=== PATIENT | female | born 1970 | race Caucasian/White ===

== ENCOUNTER 2022-12-23 17:14 | Emergency (ER) | payer MEDICARE, SELFPAY ==
--- NOTE | ~2022-12-23 | CT_ITS ---
EXAMINATION: CT brain wo con DATE: 12/23/2022 18:02 INDICATION: Right-sided numbness X 3 WEEKS . TECHNIQUE: Computed tomography (CT) of the head was performed with intravenous contrast. The mA was a djusted according to patient size. Iterative reconstruction technique was employed. The dose-length p roduct was 605.33 mGy-cm. COMPARISON: None. FINDINGS: No acute intracranial hemorrhage or extra-axial fluid collection. No hydrocephalus, mass, or herniation. No acute ischemic infarct. Unremarkable dural venous sinus attenuation. No acute osseous abnormality. The aerated spaces are clear. IMPRESSION: No acute intracranial process. Reviewed, dictated and finalized at location K.
[2022-12-23 17:14] VITALS: BP 157/88; PULSE 96; RESP 20; TEMP 36.6; O2SAT 97
--- NOTE | 2022-12-23 17:16 | ED.NEUROSD ---
HPI - Neuro Symptoms/Deficit General Chief Complaint: Unspecified Stated Complaint: R hand numbness Time Seen by Provider: 12/23/22 17:15 Source: patient Mode of arrival: ambulatory Limitations: no limitations History of Present Illness HPI Narrative: 52-year-old female, smoker with a history of bipolar, diabetes mellitus, hypothyroidism, peripheral neuropathy, status post uterine ablation presents to the ER with a one-week history of -- right hand swelling without any history of trauma. Her swelling increases with activity. 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 -- Numbness of right half of her body off and on for the past 7 days. -- felt that she had an episode where she was staring blankly into space for an unknown period of time. Subsequently the patient came around without any neuro deficit. -- fatigue for the past 7 days Onset (ago): day(s) ( Symptoms started 7 days ago.) Timing confirmed by: spouse Location: right arm and other ( Intermittent right weakness/ numbness/ swelling. intermittent right-sided numbness) Severity: mild Quality: numb and tingling Relieving factors: none Exacerbating factors: none Associated symptoms: denies other symptoms Treatments Prior to Arrival: none Related Data Home Medications Medication Instructions Recorded Confirmed albuterol sulfate 90 mcg/actuation 2 inh inhalation DAILY 12/23/22 12/23/22 breath activated powder inhaler (ProAir RespiClick) amlodipine 5 mg tablet 5 mg PO DAILY 12/23/22 12/23/22 dulaglutide 1.5 mg/0.5 mL 1.5 mg subcut WEEKLY 12/23/22 12/23/22 subcutaneous pen injector (Trulicity) duloxetine 20 mg capsule,delayed 20 mg PO DAILY 12/23/22 12/23/22 release fluticasone furoate 50 See Rx Instructions .Route .COMPLEX 12/23/22 12/23/22 mcg/actuation blister powder for inhalation (Arnuity Ellipta) gabapentin 300 mg capsule 300 mg PO BID 12/23/22 12/23/22 hydroxyzine HCl 25 mg tablet 25 mg PO TID 12/23/22 12/23/22 levothyroxine 150 mcg tablet 150 mcg PO DAILY 12/23/22 12/23/22 losartan 100 mg tablet 100 mg PO DAILY 12/23/22 12/23/22 metformin 500 mg tablet 1,000 mg PO BID 12/23/22 12/23/22 pantoprazole 40 mg tablet,delayed 40 mg PO DAILY 12/23/22 12/23/22 release pravastatin 40 mg tablet 40 mg PO DAILY 12/23/22 12/23/22 prazosin 2 mg capsule 2 mg PO DAILY 12/23/22 12/23/22 Allergies Allergy/AdvReac Type Severity Reaction Status Date / Time No Known Allergies Allergy Verified 12/23/22 17:17 Review of Systems Review of Systems: All systems reviewed & are unremarkable except as noted in HPI and below Constitutional: Constitutional: Reports as per HPI and Reports no additional constitutional complaints Eyes: Eyes: Reports as per HPI and Reports no additional eye complaints ENT: Reports system reviewed and no additional complaints, except as documented and Reports as per HPI Cardiovascular: Cardiovascular: Reports as per HPI and Reports no additional cardiovascular complaints Respiratory: Respiratory: Reports as per HPI and Reports no additional respiratory complaints Gastrointestinal: Gastrointestinal: Reports as per HPI and Reports no additional gastrointestinal complaints Genitourinary: Genitourinary: Reports no additional female genitourinary complaints and Reports as per HPI Musculoskeletal: Musculoskeletal: Reports no additional musculoskeletal complaints and Reports as per HPI Integumentary/Breasts: Skin/Breast: Reports system reviewed and no additional complaints, except as docu and Reports as per HPI Neurologic: Reports system reviewed and no additional complaints, except as documented and Reports as per HPI Comments: chronic lower extremity numbness intermittent right upper extremity numbness/swelling /pain intermittent right-sided numbness Psychiatric: Psychiatric: Reports no additional psychiatric complaints and Reports as per HPI Endocrine: Endocrine: Reports no additional endocrine complaints, Reports excessiv
--- NOTE | 2022-12-23 17:36 | ECG_ITS ---
Measurements Intervals [place] Rate: 112 P: 45 FL: 138 QRS: 53 QRSD: 103 T: 184 QT: 329 QTc: 451 Interpretive Statements SINUS TACHYCARDIA BASELINE ARTIFACT NONSPECIFIC ST-T CHANGES NO PREVIOUS ECG AVAILABLE FOR COMPARISON Electronically Signed On 12-24-2022 18:22:05 CDT by Deepika Pizano M.D.
[2022-12-23 17:55] LABS: Basophils Absolute Auto 0.05 K/mm3 (0.00-0.10); Basophils Percent Auto 0.6 % (0.0-1.0); Eosinophils Absolute Auto 0.55 K/mm3 (0.02-0.50); Eosinophils Percent Auto 6.5 % (1.0-6.0); Hemoglobin 14.7 g/dL (12.0-15.0); Immature Granulocyte Absolute 0.06 K/mm3 (0.00-0.00); Immature Granulocyte Percent A 0.7 % (0.0-0.0); Lymphocytes Absolute Auto 2.89 K/mm3 (1.10-4.50); Mean Corpuscular HGB Conc 34.2 g/dL (32.0-36.0); Mean Corpuscular Hemoglobin 30.2 pg (27.0-31.0); Mean Corpuscular Volume 88.3 fL (78.0-102.0); Mean Platelet Volume 9.1 fl (9.2-11.8); Monocytes Absolute Auto 0.55 K/mm3 (0.10-0.90); Monocytes Percent Auto 6.5 % (2.0-11.0); Neutrophils Absolute Auto 4.4 K/mm3 (1.7-7.2); Neutrophils Percent Auto 51.7 % (50.0-70.0); Platelet Count Result 289 K/mm3 (150-420); Red Blood Count 4.87 M/mm3 (4.20-5.40); Red Cell Distribution Width 13.4 % (11.6-14.4); White Blood Count 8.5 K/mm3 (4.8-10.8)
[2022-12-23 18:15] LABS: INR 0.9; Prothrombin Time 10.4 Seconds (9.50-12.10)
[2022-12-23 18:22] LABS: Alanine Aminotransferase 28 U/L (14-59); Albumin Level 3.5 g/dL (3.4-5.0); Alkaline Phosphatase 79 U/L (46-116); Anion Gap 11 mmol/L (8-16); Aspartate Amino Transferase 14 U/L (15-37); Bilirubin,Total 0.2 mg/dL (0.00-1.00); Blood Urea Nitrogen 9 mg/dL (7-18); Calcium 9.5 mg/dL (8.5-10.1); Carbon Dioxide 28 mmol/L (21-32); Chloride 103 mmol/L (98-108); Estimated CRCL calculation 97 ml/min; Estimated Glomerular Filt Rate > 60; Glucose 237 mg/dL (70-99); Lipase 38 U/L (16-77); Osmolality Calculated 300 mOsm/kg (285-295); Potassium 3.5 mmol/L (3.5-5.1); Sodium 142 mmol/L (136-145); Thyroid Stimulating Hormone 15.08 uIU/mL (0.36-3.74); Total Protein 7.4 g/dL (6.4-8.2)
--- NOTE | 2022-12-23 18:28 | PC.NURSE ---
PT IS AWAITING RESULTS AT THIS TIME. NAD NOTED. PT IS SITTING UP ON STRETCHER WITHOUT DISTRESS. SIG OTHER AT BEDSIDE. WILL CONTINUE TO MONITOR.
--- NOTE | 2022-12-23 18:51 | PC.NURSE ---
ERP AT BEDSIDE. TO CONTINUE TO MONITOR.
[2022-12-23 19:00] VITALS: BP 128/76; PULSE 98; RESP 18; O2SAT 97
== END 2022-12-23 19:00 | disposition home or self-care (01) ==
PROVIDERS: Emergency Provider Internal Medicine Critical Care Medicine; PCP Family Medicine
DX: E11.42 Type 2 diabetes mellitus with diabetic polyneuropathy (principal); G62.9 Polyneuropathy, unspecified; R94.31 Abnormal electrocardiogram [ECG] [EKG]; M79.89 Other specified soft tissue disorders; R53.1 Weakness; E03.9 Hypothyroidism, unspecified; Z79.84 Long term (current) use of oral hypoglycemic drugs
CPT/HCPCS: 36415; 70450; 80053; 83690; 84443; 84484; 85025; 85610; 93005; 99284

== ENCOUNTER 2024-02-19 20:05 | Emergency (ER) | payer MEDICARE, SELFPAY ==
--- NOTE | ~2024-02-19 | CT_ITS ---
EXAMINATION: CT abdomen pelvis w con DATE: 02/19/2024 21:28 INDICATION: 3 months of epigastric pain. TECHNIQUE: Computed tomography (CT) of the abdomen and pelvis was performed with 100 mL Omnipaque-350 intravenous contrast. Automated exposure control and iterative reconstruction technique were employe d. The dose-length product was 1311.25 mGy-cm. COMPARISON: None FINDINGS: Lung bases are clear. Heart size is normal. No pericardial or pleural effusion. Liver, gallbladder, s pleen, pancreas and bilateral adrenal glands are normal. Small bilateral renal cysts the larger on th e right measuring 10 mm. There are few approximately 2 mm renal stones, one at the lower pole the rig ht kidney and 3 in the mid and upper left kidney. No evident ureteral stones or hydronephrosis. Decom pressed bladder is unremarkable. Atrophic uterus and bilateral adnexa are unremarkable. Bowels includ ing the appendix are normal. No free intraperitoneal gas or fluid. No pathologically enlarged abdomin al or pelvic lymphadenopathy. Mild lumbar and lower thoracic spondylosis. IMPRESSION: 1. Bilateral nonobstructing nephrolithiasis. No other acute intra-abdominal/pelvic process. Reviewed, dictated and finalized at location A. IMPRESSION: 1. Bilateral nonobstructing nephrolithiasis. No other acute intra-abdominal/pel tricia process.
[2024-02-19 20:05] VITALS: BP 163/97; PULSE 96; RESP 20; TEMP 36.6; O2SAT 95
--- NOTE | 2024-02-19 20:20 | ECG_ITS ---
Test Date: 2024-02-19 20:40:45 Measurements Intervals [place] Rate: 75 P: 22 UT: 144 QRS: 45 QRSD: 96 T: 127 QT: 377 QTc: 422 Interpretive Statements SINUS RHYTHM WITH SINUS ARRHYTHMIA POSSIBLE INFERIOR MYOCARDIAL INFARCTION , OF INDETERMINATE AGE [30 ms Q WAVE IN II/aVF] MODERATE T-WAVE ABNORMALITY, CONSIDER LATERAL ISCHEMIA [-0.1+ mV T-WAVE IN I/aVL/V5/V6] ABNORMAL ECG No previous ECG available for comparison Electronically Signed On 02-20-2024 15:20:09 CDT by Claudio Domínguez M.D.
[2024-02-19] MEDS: SODIUM CHLORIDE 0.9% IV 1,000 ML 999 ML IV CONT (20:33)
[2024-02-19] MEDS: KETOROLAC 30 MG/ML VIAL (*BKC) IV PUSH (20:34)
[2024-02-19] MEDS: ONDANSETRON INJ 4 MG/2 ML VIAL IV PUSH (20:34)
[2024-02-19 20:35] LABS: Basophils Absolute Auto 0.07 K/mm3 (0.00-0.10); Basophils Percent Auto 0.7 % (0.0-1.0); Eosinophils Absolute Auto 0.49 K/mm3 (0.02-0.50); Eosinophils Percent Auto 4.7 % (1.0-6.0); Hematocrit 44.3 % (35.0-49.0); Hemoglobin 14.7 g/dL (12.0-15.0); Immature Granulocyte Absolute 0.03 K/mm3 (0.00-0.00); Immature Granulocyte Percent A 0.3 % (0.0-0.0); Lymphocytes Absolute Auto 3.11 K/mm3 (1.10-4.50); Lymphocytes Percent Auto 29.9 % (18.0-42.0); Mean Corpuscular HGB Conc 33.2 g/dL (32-36); Mean Corpuscular Hemoglobin 28.1 pg (27.0-31.0); Mean Corpuscular Volume 84.5 fL (78.0-102.0); Mean Platelet Volume 8.5 fl (9.2-11.8); Monocytes Absolute Auto 0.54 K/mm3 (0.10-0.90); Monocytes Percent Auto 5.2 % (2.0-11.0); Neutrophils Absolute Auto 6.16 K/mm3 (1.70-7.20); Neutrophils Percent Auto 59.2 % (50.0-70.0); Platelet Count Result 308 K/mm3 (150-420); Red Blood Count 5.24 M/mm3 (4.20-5.40); Red Cell Distribution Width 14.6 % (11.6-14.4); White Blood Count 10.4 K/mm3 (4.8-10.8)
[2024-02-19 20:51] LABS: Partial Thromboplastin Time 30.8 Sec (23.9-30.70)
[2024-02-19 20:53] LABS: Add Urine Microscopic? YES; Appearance Urine Clear (Clear); Bilirubin Urine Negative (Negative); Blood Urine Negative (Negative); Color Urine Light Yellow (Yellow); Glucose Urine UA Negative (Negative); Ketones Urine Trace (Negative); Leukocyte Esterase Ur 2+ LEU/UL (Negative); Nitrate Urine Negative (Negative); Protein Urine Negative (Negative); Specific Grav Ur 1.025 (1.010-1.020); Urobilinogen Urine 0.2 mg/dL (0.2-1.0)
[2024-02-19 20:53] LABS: Alanine Aminotransferase 21 U/L (14-59); Albumin Level 3.7 g/dL (3.4-5.0); Alkaline Phosphatase 106 U/L (46-116); Anion Gap 9 mmol/L (4-12); Aspartate Amino Transferase 18 U/L (15-37); Bilirubin,Total 0.3 mg/dL (0.00-1.00); Blood Urea Nitrogen 13 mg/dL (7-18); CRP 1.4 mg/dL (0.0-0.9); Calcium 9.6 mg/dL (8.5-10.1); Carbon Dioxide 30 mmol/L (21-32); Chloride 97 mmol/L (98-108); Estimated CRCL calculation 72 ml/min; Estimated Glomerular Filt Rate > 60; Glucose 147 mg/dL (70-99); Lipase 55 U/L (16-77); Osmolality Calculated 285 mOsm/kg (285-295); Potassium 3.9 mmol/L (3.5-5.1); Sodium 136 mmol/L (136-145); Total Protein 7.8 g/dL (6.4-8.2)
[2024-02-19 20:55] LABS: Lactic Acid Reflex 1.3 mmol/L (0.4-2.0)
[2024-02-19 20:59] LABS: Bacteria Urine 1+ /hpf; Calcium Oxalate Crystals Urine Present /hpf; Mucus Urine Few /lpf; Squamous Epithelial Cell Urine Few /hpf (Few)
[2024-02-19 21:21] VITALS: BP 146/68; PULSE 84; RESP 18; O2SAT 98
--- NOTE | 2024-02-19 22:01 | ED.NAVMDI ---
HPI - Nausea/Vomiting/Diarrhea General Chief complaint: Nausea/Vomiting/Diarrhea Stated complaint: Vomitin Time Seen by Provider: 02/19/24 20:08 Source: patient and family Mode of arrival: ambulatory Limitations: no limitations History of Present Illness HPI Narrative: This is a 53-year-old female with some complaint of abdominal pain with nausea vomiting over the past couple of weeks patient has mild diarrhea with some no flank pain does have suprapubic tenderness and there is no hematuria, patient complains of some dysuria. There is nausea with currently no vomiting. Patient denies any fever chills others no chest pain or shortness of breath. MD elicited complaint: nausea, vomiting and abdominal pain Onset (ago): week(s) Description of vomiting: resolved Related Data Home Medications Medication Instructions Recorded Confirmed albuterol sulfate 90 mcg/actuation 2 inh inhalation DAILY 12/23/22 12/23/22 breath activated powder inhaler (ProAir RespiClick) amlodipine 5 mg tablet 5 mg PO DAILY 12/23/22 12/23/22 dulaglutide 1.5 mg/0.5 mL 1.5 mg subcut WEEKLY 12/23/22 12/23/22 subcutaneous pen injector (Trulicity) duloxetine 20 mg capsule,delayed 20 mg PO DAILY 12/23/22 12/23/22 release fluticasone furoate 50 See Rx Instructions .Route .COMPLEX 12/23/22 12/23/22 mcg/actuation blister powder for inhalation (Arnuity Ellipta) gabapentin 300 mg capsule 300 mg PO BID 12/23/22 12/23/22 hydroxyzine HCl 25 mg tablet 25 mg PO TID 12/23/22 12/23/22 levothyroxine 150 mcg tablet 150 mcg PO DAILY 12/23/22 12/23/22 losartan 100 mg tablet 100 mg PO DAILY 12/23/22 12/23/22 metformin 500 mg tablet 1,000 mg PO BID 12/23/22 12/23/22 pantoprazole 40 mg tablet,delayed 40 mg PO DAILY 12/23/22 12/23/22 release pravastatin 40 mg tablet 40 mg PO DAILY 12/23/22 12/23/22 prazosin 2 mg capsule 2 mg PO DAILY 12/23/22 12/23/22 Allergies Allergy/AdvReac Type Severity Reaction Status Date / Time No Known Allergies Allergy Verified 12/23/22 17:17 Review of Systems Review of Systems: All systems reviewed & are unremarkable except as noted in HPI and below PMFSH Past Medical History Medical History Bipolar 1 disorder Diabetes mellitus Hypothyroidism Peripheral neuropathy Surgical History Surgical History History of endometrial ablation Social History Social History Social History: smoker Exam Const: General: healthy appearing and no acute distress Nutritional Appearance: well nourished Orientation/consciousness: patient oriented x3 HENMT: Head: normal to inspection Eyes: Conjunctivae: conjunctivae normal Neck: Neck: normal visual inspection Chest: Chest palpation & inspection: normal inspection of the chest Resp: Effort & Inspection: normal respiratory effort Auscultation: clear to auscultation bilaterally Cardio: Rate: regular rate Rhythm: regular rhythm GI: GI Palp: Yes Soft to palpation and Yes Tenderness to palpation present (GI) : General: Yes Bladder palpation abnormal Urinary Catheter: Urinary Catheter: patent and draining Back/Spine/Pelvis: Back: no CVA tenderness Skin: General skin exam: normal color Rashes: no rashes Wounds: no wounds Neuro: General: patient oriented x3, moves all extremities and no meningeal signs Extrem: General: normal to inspection and no clubbing, cyanosis or edema Course Course Emergency Course: CT scan performed and shows nonobstructing nephrolithiasis, patient vitals are stable patient did receive IV fluids and IV Zofran along with some Toradol IV. Reassessment patient's pain level has improved, UA shows that patient has urinary tract infection and patient was given a dose of ceftriaxone IV 1g. Vital Signs Vital signs: Vital Signs Temperature 36.6 C 02/19/24 20:05 Pulse Rat
[2024-02-19 22:27] VITALS: BP 142/76; PULSE 80; RESP 18; TEMP 36.6; O2SAT 97
--- NOTE | 2024-02-22 17:53 | PC.NURSE ---
FINAL URINE CULTURE: NO GROWTH, NO FURTHER ACTION OR TREATMENT NEEDED.
== END 2024-02-19 22:28 | disposition home or self-care (01) ==
PROVIDERS: Emergency Provider Emergency Medicine; PCP Family Medicine
DX: N30.00 Acute cystitis without hematuria (principal); E11.9 Type 2 diabetes mellitus without complications; E03.9 Hypothyroidism, unspecified
CPT/HCPCS: 36415; 74177; 80053; 81001; 83605; 83690; 85025; 85610; 85730; 86140; 87086; 93005; 96361; 96365; 96375; 99284; J0696; J1885; J2405; J7030; Q9967